=== PATIENT | female | born 1985 | race African-American/Black ===

== ENCOUNTER 2017-08-05 19:39 | Emergency (ER) | payer SELFPAY ==
[~2017-08-05] VITALS: Ht 167.6 cm; Wt 89.8 kg
[~2017-08-05 19:39] MED LIST: ADVIL200 MG PO; PRENATAL TABLE1 EAC3 PO
[2017-08-05 20:46] LABS: HEMATOCRIT 32.4 % (36.0-46.0); MCH 32.3 PG (29.0-34.0); MCHC 36.4 G/DL (30.0-36.0); MCV 88.8 FL (83-99); MEAN PLAT.VOLUME 9.8 uM^3 (9.5-12.4); PLATELET COUNT 319 K/uL (156-360); RBC DIS.WIDTH-CV 12.2 % (11.8-14.6); RBC DIS.WIDTH-SD 38.9 % (39-53); RED BLOOD COUNT 3.65 M/uL (3.80-5.20)
[2017-08-05 20:52] LABS: ADD MIUA? YES; BILIRUBIN NEGATIVE; BLOOD LARGE; GLUCOSE (STRIP) NEGATIVE; KETONES NEGATIVE; LEUKOCYTES NEGATIVE; NITRITE NEGATIVE; PROTEIN (STRIP) 100; SPECIFIC GRAVITY 1.017 (1.000-1.030)
[2017-08-05 20:53] LABS: COLOR RED ((YELLOW))
[2017-08-05 21:29] LABS: EPITHELIAL CELLS NONE SEEN /HPF; RED BLOOD CELLS TNTC /HPF (0-5); WHITE BLOOD CELLS RARE /HPF (0-5)
[2017-08-05 21:30] LABS: BACTERIA RARE /HPF; MUCUS NONE SEEN /LPF; UCUL ADDED? YES
[2017-08-05 21:31] LABS: CASTS NONE SEEN /LPF; CRYSTALS NONE SEEN
[2017-08-05 23:09] VITALS: BP 110/80
== END 2017-08-05 23:10 | disposition home or self-care (01) ==
LOC: EME 19:39 → RME 19:39
DX: O20.0 Threatened abortion (principal); O09.811 Supervision of pregnancy resulting from assisted reproductive technology, first trimester; Z3A.01 Less than 8 weeks gestation of pregnancy
CPT/HCPCS: 76801; 81003; 84702; 85027; 87086; 99281; 99284